=== PATIENT | female | born 1950 | race Caucasian/White ===

== ENCOUNTER → 2017-04-28 | Outpatient (CLI) | payer MEDICARE, BC | LOC: BICMAMMO 14:18 | DX: Z12.31 Encounter for screening mammogram for malignant neoplasm of breast (principal); Z80.3 Family history of malignant neoplasm of breast | CPT/HCPCS: 77063; G0202; 77067 ==

== ENCOUNTER 2017-05-20 08:00 | Outpatient (CLI) | payer MEDICARE, BC | END 2017-05-20 08:01 | disposition home or self-care (01) | LOC: BICMAMMO 08:00 | PROVIDERS: ATTEND Family Medicine | DX: R92.8 Other abnormal and inconclusive findings on diagnostic imaging of breast (principal) | CPT/HCPCS: 76642; G0206; G0279 ==

== ENCOUNTER 2017-08-16 09:25 | Outpatient (CLI) | payer MEDICARE, BC ==
--- NOTE | 2017-08-17 15:57 | RAD ---
EXAM: MODIFIED BARIUM SWALLOW 08/17/17 EXPOSURE: 0.3 mGy*m2, 19 seconds. HISTORY: Dysphagia, pharyngeal phase. Hoarseness. Gastroesophageal reflux disease without esophagitis. Cough. COMPARISON: None. FINDINGS: In the presence of speech pathologist, the patient administered puree, nectar thick, thin liquid, mec hanical soft consistencies. Patient was also administered a barium tablet. No evidence of penetration or aspiration. Please refer to speech pathology report for feeding recomme ndation. Note, there may be a prominent cricopharyngeus at the C5 level. Better interrogation with a conventio nal esophogram is recommended. Speech pathologist suggest possible structure at the upper esophageal stricture which can also be assessed with a conventional esophagram. IMPRESSION: Findings as above. POS: JADA
== END 2017-08-16 09:26 | disposition home or self-care (01) ==
PROVIDERS: ATTEND Otolaryngology Plastic Surgery within the Head & Neck
DX: K21.9 Gastro-esophageal reflux disease without esophagitis (principal); R13.13 Dysphagia, pharyngeal phase; R05 Cough; R49.0 Dysphonia
CPT/HCPCS: 74230; G8996-GN-CI; G8997-GN-CI; G8998-GN-CI

== ENCOUNTER 2017-11-18 14:28 | Outpatient (CLI) | payer MEDICARE, BC | END 2017-11-18 14:29 | disposition home or self-care (01) | LOC: BICMAMMO 14:28 | PROVIDERS: ATTEND Family Medicine | DX: R92.2 Inconclusive mammogram (principal); N63.20 Unspecified lump in the left breast, unspecified quadrant; Z80.3 Family history of malignant neoplasm of breast | CPT/HCPCS: 76642; 77065; G0279 ==

== ENCOUNTER 2018-05-22 13:48 | Outpatient (CLI) | payer MEDICARE, BC ==
--- NOTE | 2018-05-22 15:23 | ULT ---
FOCUSED ULTRASOUND OF THE LEFT BREAST: DATE: 05/22/2018. COMPARISON: 11/18/2017 and 05/20/2017. HISTORY: Reevaluate hypoechoic lesion noted in left breast. FINDINGS: Focused ultrasound of the left breast at the 12 o'clock position 4 cm from the nipple demonstrates a hypoechoic lesion measuring approximately 6 x 3 x 6 mm. It is similar in size when compared to the p rior examination. Its mammographic appearance appears benign. There is increased through transmissi on suggesting a cystic lesion. Portions of it appear slightly complex. IMPRESSION: BIRADS 3: Probably benign findings. Recommend followup ultrasound of the left breast in 6 months. POS: OFF
== END 2018-05-22 13:49 | disposition home or self-care (01) ==
LOC: BICMAMMO 13:48
PROVIDERS: ATTEND Family Medicine
DX: R92.8 Other abnormal and inconclusive findings on diagnostic imaging of breast (principal); N63.20 Unspecified lump in the left breast, unspecified quadrant; Z80.3 Family history of malignant neoplasm of breast; Z98.890 Other specified postprocedural states
CPT/HCPCS: 76642; 77066; G0279

== ENCOUNTER 2018-08-21 17:00 | Outpatient (CLI) | payer MEDICARE, BC | END 2018-08-21 17:01 | disposition home or self-care (01) | LOC: SLEEPLAB 17:00 | PROVIDERS: ATTEND Family Medicine | DX: G47.10 Hypersomnia, unspecified (principal); R53.83 Other fatigue; R06.83 Snoring; F41.9 Anxiety disorder, unspecified; I10 Essential (primary) hypertension; G47.33 Obstructive sleep apnea (adult) (pediatric) | CPT/HCPCS: 95806 ==

== ENCOUNTER 2018-09-26 19:30 | Outpatient (CLI) | payer MEDICARE, BC | END 2018-09-26 19:31 | disposition home or self-care (01) | LOC: SLEEPLAB 19:30 | PROVIDERS: ATTEND Family Medicine | DX: G47.33 Obstructive sleep apnea (adult) (pediatric) (principal); R53.83 Other fatigue; R06.83 Snoring | CPT/HCPCS: 95811 ==

== ENCOUNTER 2018-11-30 14:50 | Outpatient (CLI) | payer MEDICARE, BC ==
--- NOTE | 2018-11-30 15:39 | ULT ---
LEFT BREAST DIAGNOSTIC ULTRASOUND: INDICATION: Six-month followup for a BIRADS 3 lesion within the left breast 12 o'clock position, 4 cm from the ni pple. FINDINGS: The hypoechoic lesion within the left breast 12 o'clock position, 4 cm from the nipple, is not apprec iably changed in size measuring 5.8 x 3.4 x 6.2 cm where previously the lesion measured 5.8 x 3.4 x 6 .2 mm. IMPRESSION: BIRADS category 3 - probably benign. Stable hypoechoic lesion within the left breast 12 o'clock posit ion. The patient is to return in 6 months for a bilateral diagnostic mammographic and left breast u ltrasound examination. The patient will be due for a screening evaluation of the left and right myrna st at that point in time. The patient will also undergo a left breast ultrasound to complete the fin al followup evaluation for this lesion in the left breast 12 o'clock position. The patient was couns eled on findings prior to leaving the breast center. CODE CR POS: OFF
== END 2018-11-30 14:51 | disposition home or self-care (01) ==
LOC: BICULT 14:50
PROVIDERS: ATTEND Family Medicine
DX: N63.20 Unspecified lump in the left breast, unspecified quadrant (principal); N64.89 Other specified disorders of breast

== ENCOUNTER 2019-05-25 13:28 | Outpatient (CLI) | payer MEDICARE, BC ==
--- NOTE | 2019-05-25 14:10 | MMO ---
Bilateral MAMMO Bilat Diag [facility]. CLINICAL HISTORY: Patient is 69 years old and is seen for diagnostic exam. The patient has no family history of breast cancer. The patient has no personal history of cancer. The patient has a history of right Stereotatic Biopsy in February, - benign, right Stereotatic Biopsy in November, - benign and right Excisional Biopsy in SEPTEMBER 2005 - benign. VIEWS: The views performed were: bilateral craniocaudal with tomosynthesis; bilateral mediolateral oblique with tomosynthesis; and bilateral mediolateral with tomosynthesis. FILMS COMPARED: The present examination has been compared to prior imaging studies performed at [facility] on 05/20/2017, 11/18/2017, 05/22/2018 and 11/30/2018. This study has been interpreted with the assistance of computer-aided detection. MAMMOGRAM FINDINGS: There are scattered fibroglandular densities. Finding 1: There are two biopsy clips seen in the right breast. Finding 2: There is a stable nodule seen in the left breast. There are no suspicious masses, suspicious calcifications, or new areas of architectural distortion. IMPRESSION: THERE IS NO MAMMOGRAPHIC EVIDENCE OF MALIGNANCY. A ROUTINE FOLLOW-UP MAMMOGRAM IN 1 YEAR IS RECOMMENDED. THE RESULTS OF THIS EXAM WERE SENT TO THE PATIENT. ACR BI-RADS Category 2 - Benign finding MAMMOGRAPHY NOTE: 1. A negative mammogram report should not delay a biopsy if a dominant of clinically suspicious mass is present. 2. Approximately 10% to 15% of breast cancers are not detected by mammography. 3. Adenosis and dense breasts may obscure an underlying neoplasm. Reported by: LANNY DYER MD Electonically Signed: [id number]
== END 2019-05-25 13:29 | disposition home or self-care (01) ==
LOC: BICMAMMO 13:28
PROVIDERS: ATTEND Family Medicine
DX: R92.8 Other abnormal and inconclusive findings on diagnostic imaging of breast (principal)
CPT/HCPCS: 77066; G0279

== ENCOUNTER 2020-07-22 13:19 | Outpatient (CLI) | payer MEDICARE, BC | END 2020-07-22 13:20 | disposition home or self-care (01) | LOC: BICMAMMO 13:19 | PROVIDERS: ATTEND Family Medicine | DX: Z12.31 Encounter for screening mammogram for malignant neoplasm of breast (principal) | CPT/HCPCS: 77063; 77067 ==

== ENCOUNTER 2020-10-03 13:38 | Outpatient (CLI) | payer MEDICARE, BC | END 2020-10-03 13:39 | disposition home or self-care (01) | LOC: BICRAD 13:38 | PROVIDERS: ATTEND Physician Assistant | DX: M79.671 Pain in right foot (principal); M79.672 Pain in left foot; M19.071 Primary osteoarthritis, right ankle and foot ==

== ENCOUNTER 2021-10-29 13:14 | Outpatient (CLI) | payer MEDICARE, BC | END 2021-10-29 13:15 | disposition home or self-care (01) | LOC: BICMAMMO 13:14 | PROVIDERS: ATTEND Family Medicine | DX: Z12.31 Encounter for screening mammogram for malignant neoplasm of breast (principal); Z91.89 Other specified personal risk factors, not elsewhere classified | CPT/HCPCS: 77063; 77067 ==

== ENCOUNTER 2022-12-24 14:24 | Outpatient (CLI) | payer MEDICARE, BC | END 2022-12-24 14:25 | disposition home or self-care (01) | LOC: BICMAMMO 14:24 | PROVIDERS: ATTEND Nurse Practitioner Family | DX: Z12.31 Encounter for screening mammogram for malignant neoplasm of breast (principal); Z80.3 Family history of malignant neoplasm of breast; Z91.89 Other specified personal risk factors, not elsewhere classified | CPT/HCPCS: 77063; 77067 ==

== ENCOUNTER 2023-04-16 13:24 | Outpatient (CLI) | payer MEDICARE, BC | END 2023-04-16 13:25 | disposition home or self-care (01) | LOC: RAD 13:24 | PROVIDERS: ATTEND Family Medicine | DX: R05.1 Acute cough (principal); J34.89 Other specified disorders of nose and nasal sinuses | CPT/HCPCS: 70220; 71046 ==

== ENCOUNTER 2023-09-15 14:57 | Outpatient (CLI) | payer MEDICARE, BC | END 2023-09-15 14:58 | disposition home or self-care (01) | LOC: BICRAD 14:57 | PROVIDERS: ATTEND Internal Medicine Rheumatology | DX: M54.50 Low back pain, unspecified (principal); M47.816 Spondylosis without myelopathy or radiculopathy, lumbar region; M41.9 Scoliosis, unspecified | CPT/HCPCS: 72100 ==